=== PATIENT | male | born 1980 | race Two or more races ===

== ENCOUNTER 2017-08-15 22:58 | Emergency (ER) | payer MEDICARE, OTHER ==
[~2017-08-15] VITALS: Ht 190.5 cm; Wt 108.9 kg
[2017-08-15 23:50] VITALS: BP 132/74
[2017-08-16] MEDS ORDERED: TETRACAINE HCL 0.5% OPTH(EYE) SOLN 4ML LEFTEYE ONE (00:15)
== END 2017-08-16 00:56 | disposition home or self-care (01) ==
LOC: EDSEX 22:58 → ER 22:58
DX: T15.92XA Foreign body on external eye, part unspecified, left eye, initial encounter (principal); I10 Essential (primary) hypertension; X58.XXXA Exposure to other specified factors, initial encounter; Y93.89 Activity, other specified; Y99.8 Other external cause status; Y92.89 Other specified places as the place of occurrence of the external cause